=== PATIENT | male | born 1945 | race African-American/Black ===

== ENCOUNTER 2018-08-23 09:18 | Inpatient (IN) ==
[2018-08-23] MEDS ORDERED: LR 0 ML ONE (09:56)
[2018-08-23] MEDS ORDERED: LR 1,000 ML ONE (09:56)
[2018-08-23] MEDS ORDERED: DIPRIVAN 1% ONE ×2 (10:04→10:45)
[2018-08-23] MEDS ORDERED: PEPCID ONE (10:22)
[2018-08-23] MEDS ORDERED: REGLAN ONE (10:22)
[2018-08-23] MEDS ORDERED: XYLOCAINE-MPF 2% ONE (10:46)
[2018-08-23] MEDS ORDERED: FENTANYL ONE (10:47)
[2018-08-23 12:38] LABS: BASO# 0.01 X1000 (0.0-0.2); BASO% 0.2 % (0.0-0.8); EOS# 0.28 X1000 (0.0-0.7); EOS% 4.9 % (0.0-10.0); HEMATOCRIT 38.7 % (42.0-52.0); HEMOGLOBIN 12.9 g/dL (14.0-18.0); LYMPH# 1.42 X1000 (1.2-3.4); MCH 30.9 PG (27-31); MCHC 33.3 g/dL (33-37); MCV 92.8 FL (81-99); MONO# 0.81 X1000 (0.11-0.59); MONO% 14.2 % (1.7-9.3); NEUT# 3.17 X1000 (1.4-6.5); NEUT% 55.7 % (42.2-75.2); PLT 200 X1000 (130-400); RBC 4.17 XMIL (4.7-6.1); RDW 13.5 % (11.5-14.5); WBC 5.69 X1000 (4.8-10.8)
--- NOTE | 2018-08-23 12:50 | OPERATIVE NOTE ---
PROCEDURE DATE: 08/23/2018 REFERRING PHYSICIAN: Dr. Kamari Barrientos MD. INDICATION FOR PROCEDURE: 1. Nausea. 2. Epigastric pain. 3. History of malignant polyp. PROCEDURE PERFORMED: 1. Esophagogastroduodenoscopy. 2. Colonoscopy, canceled. CONSENT: Informed consent was obtained from the patient prior to the procedure. The risks, benefits, and alternatives were discussed. MEDICATION: The patient received monitored anesthesia care. PERFORMING PHYSICIAN: Carolina Palma MD. ASSISTANTS: 1. ST. Vlad 2. Ashlyn Carpenter RN 3. Janna Sun CRNA. 4. Angel Kolb MD (anesthesia). COMPLICATIONS: There were no complications. ESTIMATED BLOOD LOSS: None. SPECIMENS REMOVED: None. FINDINGS: On the 1st procedure, the upper endoscope was inserted to the duodenum. The hypopharynx appeared normal. The upper esophageal sphincter appeared normal. In the tubular esophagus, there were multiple white plaques consistent with Cely esophagitis. There was severe grade D erosive esophagitis the entire length of the esophagus. The GE junction appeared irregular with salmon-colored tongues suspicious for early Persaud esophagus. Biopsies were not taken due to the severity of the esophagitis. In the gastric lumen, there was over 600 mL of fluid and gastric debris evacuated from the stomach. Post evacuation, the fundus remained obscured. In the gastric body, there were multiple benign-appearing gastric polyps. The gastric mucosa showed multiple scattered erosions consistent with acute erosive gastritis. The pylorus was inflamed. In the duodenum there was duodenitis. There was also solid food and liquid debris pooling in the duodenum suggestive of a distal bowel obstruction. The lumen was then decompressed and the scope was removed without incident. The patient was repositioned in anticipation of performing a colonoscopy. However, prior to insertion of the scope, the patient passed solid brown stool per rectum. The procedure was canceled prior to scope insertion. IMPRESSIONS: 1. Cely esophagitis. 2. Severe erosive esophagitis, grade D. 3. Irregular gastroesophageal junction. 4. Severe gastric stasis suggestive of gastric outlet obstruction. 5. Multiple gastric polyps. 6. Acute erosive gastritis. 7. Inflamed pylorus. 8. Duodenitis with dilation and pooling of intestinal debris. 9. Inadequate bowel prep for colonoscopy. RECOMMENDATION: 1. We will obtain a CT scan of the abdomen and pelvis now. 2. He will need his EGD and colonoscopy rescheduled. 3. I will obtain a CMP and a CBC. 4. He will need Diflucan 200 mg today, followed by 100 mg daily for a total of 21 days of treatment. 5. He will need Prilosec 40 mg p.o. daily pending the results of his CT scan. 6. We will also begin Carafate 1 g 4 times per day for 12 weeks. 7. The patient's disposition will be based on the CT scan findings. cc: MD Kamari Salamanca MD
[2018-08-23 12:51] LABS: AGAP 10; ALB/GLOB RATIO 1.1; ALBUMIN 3.4 g/dL (3.5-5.0); ALKALINE PHOSPHATASE 71 U/L (32-122); BUN 8 mg/dL (8-22); CALCIUM 9.2 mg/dL (8.8-10.2); CHLORIDE 100 mmol/L (98-107); COSMO 275; CREATININE 0.8 mg/dL (0.7-1.2); ESTIMATED GFR > 60; GLUCOSE 86 mg/dL (70-104); GOT 16 U/L (10-34); GPT 12 U/L (10-44); POTASSIUM 3.9 mmol/L (3.5-5.1); SODIUM 139 mmol/L (136-145); TCO2 29 mmol/L (25-35); TOTAL BILIRUBIN 0.53 mg/dL (0.20-1.00); TOTAL PROTEIN 6.6 g/dL (6.3-8.3)
--- NOTE | 2018-08-23 14:36 | Diag Imaging Result Doc PS360 ---
EXAM: CT ABD/PELVIS W/PO AND IV CON 08/23/2018 HISTORY: gastric outlet obstruction, hx malignant polyp TECHNIQUE: This exam was performed using automated exposure control, adjustment of mA or kV according to patient size, and/or use of iterative reconstruction technique. COMMENT: There are compressive atelectatic changes in the right lower lobe which were also present to some extent at the time the previous study of 12/24/2017. There is a large paraesophageal hiatal hernia with the distal stomach and duodenum protruding into the chest. The duodenum returns into the abdomen on the right side. There is some bilateral nephrolithiasis. There are multiple renal cysts bilaterally with one containing calcifications and septations in the lower pole on the right measuring over 7.1 cm in diameter. This is similar in appearance to the previous study. Correlation with ultrasonography is recommended in view of the septations and calcifications. The aorta is not distended. The mesenteric and renal arteries are patent. The spleen is not enlarged containing multiple granulomata. The adrenal glands are not enlarged. The pancreas is within normal limits. There is diverticulosis in the descending colon. The small bowel is not distended. There has been partial resection of the right colon. Pelvis: There is extensive sigmoid diverticulosis without evidence of diverticulitis. There is no evidence of free fluid. There are severe degenerative changes in both hip joint spaces with multiple subchondral cysts on both sides of the joints. There are degenerative disc changes in the lumbar spine as well as a hemangioma present in L3. There is been no significant change in the appearance of the regional skeleton since the previous study. IMPRESSION: Paraesophageal hiatal hernia. Renal cysts particularly on the right as described. Advise further evaluation of the right-sided cyst with ultrasonography. Electronically signed by Alonzo Chang 08/23/2018 2:34 PM
[2018-08-23] MEDS ORDERED: SODIUM CHLORIDE 0.9% INJ SCH (16:00)
[2018-08-23] MEDS ORDERED: NS 1,000 ML ONE (16:09)
[2018-08-23] MEDS ORDERED: SODIUM CHLORIDE 0.9% 10 ML ONE (16:20)
[2018-08-23] MEDS: NS 1,000 ML IV SCH (16:20)
[2018-08-23] MEDS: PROTONIX IV SCH (16:21)
[2018-08-23] MEDS ORDERED: ZOFRAN IV PRN (16:45)
[2018-08-23 20:23] VITALS: BP 137/72
[2018-08-23] MEDS ORDERED: AMBIEN PO PRN (21:34)
[2018-08-23] MEDS ORDERED: BENTYL PO PRN (21:34)
[2018-08-24] MEDS: PROTONIX IV SCH (03:22)
[2018-08-24] MEDS: NS 1,000 ML IV SCH ×2 (03:27→05:51)
--- NOTE | 2018-08-24 03:44 | HISTORY AND PHYSICAL ---
PRIMARY CARE PHYSICIAN: Kamari Barrientos MD CHIEF COMPLAINT: Paraesophageal hernia. HISTORY OF PRESENT ILLNESS: The patient is a 72-year-old male with a complicated past medical history presents for evaluation of above-mentioned symptoms. Current history of present illness began several weeks ago. At that time, the patient states he developed increasing bloating and epigastric pain. The pain was exacerbated with eating certain foods and with eating a larger amount of food. The patient [*] her symptoms have progressed. The patient has, however, found reasonable control with smaller meals and symptomatic management of reflux disease. In addition to the abdominal discomfort, he also notes fluctuating irritable bowel syndrome. The patient was seen by Dr. Palma today. An EGD suggested possible gastric outlet obstruction. A CT scan of the abdomen and pelvis revealed a paraesophageal hiatal hernia and a renal cyst, particularly on the right, one with calcifications and septations. Because of the patient's new finding, I was contacted by Dr. Palma for admission for surgical consultation. The patient denies hematochezia, melena, or hematemesis. He has vomited on one occasion which he attributes to the prep for his colonoscopy. His nausea has been present only with overeating. PAST MEDICAL HISTORY: 1. Allergic rhinitis. 2. Benign prostatic hypertrophy. 3. History of Hemoccult-positive stools in 2013 with subsequent negative colonoscopy. 4. Right bundle branch block. 5. Colonic diverticulosis. 6. Reflux disease with a history of a hiatal hernia in 2007. 7. Family history of ischemic heart disease. 8. Nonalcoholic fatty liver disease. 9. Hiatal hernia status post surgical intervention in the . EGD, as described above, in 2007 suggested a recurrence. 10. Hypertension. 11. Irritable bowel syndrome. 12. History of a colonic mass status post resection in 2018. 13. Low HDL. 14. History of nephrolithiasis. 15. Obstructive sleep apnea. 16. Obesity. 17. Osteoarthritis. 18. Polymyalgia rheumatica. 19. Rheumatoid arthritis. 20. Left testicular hydrocele. TENTATIVE CURRENT MEDICATIONS: 1. Aleve [*]mg as needed. 2. Ambien 10 mg at bedtime as needed. 3. Dicyclomine 3 times daily as needed. 4. Fluticasone nasal spray, 2 sprays each nostril daily. 5. Folic acid 1 mg daily. 6. Losartan 50 mg daily. 7. Methotrexate 2.5 mg 6 tablets on Thursday. 8. Shaniko-3 at 1000 mg daily. 9. Pantoprazole 40 mg daily. 10. Probiotic daily. 11. Remicade every 8 weeks. 12. Tamsulosin 0.4 mg daily. ALLERGIES: He patient answered no known drug allergies. SOCIAL HISTORY: The patient smoked 1 pack per day for 11 years. He quit in 1978. He denies alcohol or illicit drug use. He is retired from [employer]. He enjoys tennis. He exercises routinely. FAMILY HISTORY: The patient's father passed at age 72 secondary to complications of an acute myocardial infarction. The patient's mother passed at age 67 secondary to complications of pneumonia associated with sepsis. REVIEW OF SYSTEMS: A 12-point review of systems was performed. Pertinent positives and negatives are noted in the history present illness. PHYSICAL EXAMINATION: VITAL SIGNS: Temperature 98.1 degrees, heart rate 66, respirations 18, blood pressure is 137/72. GENERAL: Well nourished, well developed, in no acute distress. HEENT: Normocephalic and atraumatic. Pupils equal, round and reactive to light. Extraocular muscles intact. Sclerae are anicteric. [place] conjunctivae. Oral and nasopharynx clear without exudate. NECK: Supple. No lymphadenopathy. No thyromegaly. No bruits auscultated. CARDIOVASCULAR: Regular rate and rhythm. No significant murmurs, rubs or gallops. PULMONARY: Clear to auscultation bilaterally. ABDOMEN: Soft, nontender and nondistended. Positive bowel sounds. EXTREMITIES: Moves all extremities well. No significant clubbing, cyanosis or edema. NEUROLOGIC: Cranial nerves II-XII grossly intact. Motor and sensory grossly intact. PSYCHOLOGIC: Examination is appropriate. LABORATORY DATA: White blood cell count 5.69, hemoglobin 12.9, hematocrit 38.7, platelet count 200,000. Sodium 139, potassium 3.9, chloride 100, bicarbonate 29, BUN 8, creatinine 0.8, glucose 86, calcium 9.2, total bilirubin 0.53, total protein 6.6, albumin 3.4, alkaline phosphatase 71, AST 16, ALT 12. CT scan of the abdomen and pelvis suggested paraesophageal hiatal hernia. Renal cyst particularly on the right. Advise further evaluation of the right-sided cyst with ultrasonography. ASSESSMENT AND PLAN: The patient is a 72-year-old male with past medical history as noted, presents for evaluation of paraesophageal home anemia. Per the patient, symptoms began several weeks ago. He has been forced to adjust his diet in order to maintain reasonable control of his nausea. Additionally, the patient was found to have a complicated renal cyst. The patient will be admitted to the hospital for full evaluation and management. 1. Admit to General Medicine. 2. Left paraesophageal hiatal hernia - the patient has been symptomatic for several weeks. As described above, he is status post a surgical repair of a hiatal hernia in the . At this point, this suggests a surgical failure. We will consult Dr. Mcgowan. At this point, the patient is experiencing nausea, but has had only one episode of vomiting. We will determine if an urgent or a more scheduled surgical intervention is warranted. 3. We will check an upper gastrointestinal series. 4. Complicated right-sided renal cysts - Dr. Palma has been consulted. Ultrasound has been ordered. We will determine if a surgical intervention is warranted. 5. Reflux disease - in the setting of a hiatal hernia, we will continue Protonix therapy. 6. Hypertension - we will continue losartan therapy. 7. Rheumatoid arthritis - we will remain aware. He is treated with methotrexate therapy. 8. Irritable bowel - we will continue as needed dicyclomine. 9. Fluid electrolytes and nutrition - we will monitor electrolytes, normal saline at 75 mL an hour. Nothing by mouth for now. Depending on surgery consultation, we will determine if starting a diet is appropriate. 10. Prophylaxis - the patient will be placed on sequential compression devices as possible surgical intervention will be warranted. cc: Kamari Barrientos MD
[2018-08-24 07:31] LABS: BASO# 0.02 X1000 (0.0-0.2); BASO% 0.4 % (0.0-0.8); EOS# 0.21 X1000 (0.0-0.7); EOS% 3.9 % (0.0-10.0); HEMATOCRIT 40.3 % (42.0-52.0); HEMOGLOBIN 13.2 g/dL (14.0-18.0); LYMPH# 1.19 X1000 (1.2-3.4); LYMPH% 22.2 % (20.5-51.1); MCH 30.4 PG (27-31); MCHC 32.8 g/dL (33-37); MCV 92.9 FL (81-99); MONO# 0.68 X1000 (0.11-0.59); MONO% 12.7 % (1.7-9.3); MPV 9.5 FL (7.4-10.4); NEUT# 3.26 X1000 (1.4-6.5); NEUT% 60.8 % (42.2-75.2); PLT 196 X1000 (130-400); RBC 4.34 XMIL (4.7-6.1); RDW 13.5 % (11.5-14.5); WBC 5.36 X1000 (4.8-10.8)
[2018-08-24 07:36] LABS: INR 1.04; PROTIME 14.4 Seconds (11.0-16.0)
[2018-08-24 07:37] LABS: PTT 35.8 Seconds (22.3-41.8)
[2018-08-24 07:50] LABS: AGAP 13; ALB/GLOB RATIO 1.1; ALBUMIN 3.4 g/dL (3.5-5.0); ALKALINE PHOSPHATASE 75 U/L (32-122); BUN 6 mg/dL (8-22); CALCIUM 8.8 mg/dL (8.8-10.2); CHLORIDE 104 mmol/L (98-107); COSMO 277; CREATININE 0.8 mg/dL (0.7-1.2); ESTIMATED GFR > 60; GLUCOSE 65 mg/dL (70-104); GOT 16 U/L (10-34); GPT 13 U/L (10-44); POTASSIUM 4.1 mmol/L (3.5-5.1); SODIUM 141 mmol/L (136-145); TCO2 24 mmol/L (25-35); TOTAL BILIRUBIN 0.87 mg/dL (0.20-1.00); TOTAL PROTEIN 6.4 g/dL (6.3-8.3)
--- NOTE | 2018-08-24 07:58 | Diag Imaging Result Doc PS360 ---
US ABDOMEN-COMPLETE - 08/24/2018 INDICATION: complex renal cyst COMPARISON: CT from 08/23/2018 FINDINGS: The liver is diffusely hyperechoic compatible with mild fatty change. No liver masses. The gallbladder is normal. The pancreas is obscured. The spleen is normal. The large right renal cysts are minimally septated but otherwise fairly benign appearing. These each measure about 10 cm. There is also a left renal echogenic cyst in the midpole measuring about 3.3 cm. Common bile duct measures 3 mm. Aorta, IVC, and main portal vein are patent. IMPRESSION: 1. Mild fatty liver. 2. Septated but fairly benign-appearing right renal cysts. 3. Echogenic left renal cyst. Follow-up in six months and one year. Electronically signed by Juan Carlos Castro 08/24/2018 7:55 AM
--- NOTE | 2018-08-24 08:07 | Diag Imaging Result Doc PS360 ---
EXAM: BA SWALLOW-ESOPHAGUS INDICATION: hiatal hernia and gastric outlet obstruction TECHNIQUE: Oral barium contrast was administered and the bolus was followed under fluoroscopy. Spot images were obtained. COMPARISON: None. FINDINGS: There is a very large paraesophageal hernia on the right. It is causing leftward bowing of the distal esophagus. There is significant delay of barium passage through the gastroesophageal junction and into the stomach. No discrete esophageal ulceration, filling defect, or stricture is identified, otherwise. No gastroesophageal reflux was witnessed during the study. IMPRESSION: Large paraesophageal hernia as described with significant delay of barium passage through the gastroesophageal junction and into the stomach. Electronically signed by Anand Eng 08/24/2018 8:04 AM
--- NOTE | 2018-08-24 08:48 | CONSULTATION ---
DATE OF CONSULTATION: 08/23/2018 REFERRING PHYSICIAN: Dr. Carolina Palma. REASON FOR CONSULTATION: Complex renal cysts. HISTORY OF PRESENT ILLNESS: A 72-year-old male who was admitted secondary to epigastric pain, bloating and diagnosis of periesophageal hernia. During evaluation, CT scan of abdomen and pelvis with oral and IV contrast was performed on 08/23/2017, which revealed bilateral renal cysts with a complex renal cyst containing septations and calcifications on the right lower pole. Of note, the patient had a CT scan 8 months prior and the cystic lesion had appeared to be stable. The patient has a urologic history of urolithiasis as well as a hydrocele. He does not recall being aware of the renal cysts. He denies significant right flank pain. He denies gross hematuria. He denies recurrent urinary tract infections. PAST MEDICAL HISTORY: 1. BPH. 2. Nephrolithiasis. 3. Hydrocele. 4. Allergic rhinitis. 5. GERD. 6. Hypertension. 7. Obstructive sleep apnea. PAST SURGICAL HISTORY: 1. Hiatal hernia repair. 2. Colon resection. 3. Left hydrocelectomy. 4. ORIF of right ankle and right elbow. 5. Knee arthroscopy. ALLERGIES: No known drug allergies. HOME MEDICATIONS: Tamsulosin, losartan, pantoprazole, Remicade, methotrexate, Ambien, dicyclomine. SOCIAL HISTORY: Former smoker, denies alcohol or illicit drug use. FAMILY HISTORY: No malignancies. No urolithiasis. REVIEW OF SYSTEMS: Reviewed and 12 systems negative except as in history of present illness. PHYSICAL EXAMINATION: Vitals: Temperature 98.1 degrees, pulse 88, blood pressure 153/77. General: No acute distress. Pleasant male. HEENT: Normocephalic, atraumatic. Cardiovascular: Regular rate and rhythm. Pulmonary: Bilateral breath sounds. Abdomen: Protuberant, nontender to palpation. No masses palpable. No evidence of hepatosplenomegaly. Well healed infraumbilical midline abdominal scar. No evidence of hernias. Back: No CVA tenderness. : Bladder is nontender to palpation, meatus is patent, left hemiscrotal enlargement, right testis is palpable, appropriate size, no masses noted, no tenderness, right vas deferens palpable, right epididymis is nontender. The left testis is difficult to palpate due to hydrocele, left epididymis palpable. Perineum with structural integrity intact. Rectal: Digital rectal examination is deferred at this examination. Lymphatic: No groin lymphadenopathy. Dermatologic: No obvious skin rashes. Neurologic: Alert and oriented x3. Psychiatric: Appropriate mood and affect. PERTINENT LABORATORY DATA: White cell count 6000, hematocrit is 39. Creatinine is 0.8. PERTINENT IMAGES: CT abdomen and pelvis with oral and IV contrast per history of present illness. ASSESSMENT AND PLAN: A 72-year-old male with history of urolithiasis who has bilateral renal cysts with a complex right lower pole renal cyst. I personally reviewed CT images. I have discussed with the patient and his who was present at bedside, that complex cysts have a small chance of becoming malignant. He definitely has calcification and septations within the cyst, which would make it a [place] type 3 lesion. I have discussed with the patient that his options could be surveillance of the cystic lesion with serial ultrasounds versus cyst excision. Obviously biopsy of the cyst would not yield good result and it could not be addressed with radiofrequency ablation or cryotherapy. I have discussed with the patient that I agree with the radiologist regarding checking the ultrasound, although CT scan is by definition a better imaging modality to assess and grade complexity of the renal cyst. The patient and his family. At this time feel that they would not want to observe this cyst with serial imaging and leaning toward intervention. I have discussed with them that this could be arranged in the near future on an outpatient basis pending his GI workup and Dr. Mcgowan's recommendations for the hiatal hernia. PLAN: 1. I agree with obtaining renal ultrasound. 2. We will follow up with the patient and revisit the plan after noting Dr. Mcgowan's recommendation regarding the hiatal hernia. Thank you for the consultation. cc: MD Kamari Proctor MD
[2018-08-24] MEDS ORDERED: COZAAR PO SCH (09:00)
[2018-08-24] MEDS ORDERED: FOLIC ACID PO SCH (09:00)
[2018-08-24] MEDS ORDERED: FLOMAX PO SCH (09:00)
[2018-08-24] MEDS ORDERED: NON-FORMULARY MED (Omeprazole [Omeprazole] 40 MG) PO SCH (09:00)
--- NOTE | 2018-08-24 09:28 | PROGRESS NOTE ---
DATE: 08/24/2018 SUBJECTIVE: Mr. Ruff reports an uneventful night. He underwent renal ultrasound this morning, as well as well as barium swallow testing. OBJECTIVE: Vital Signs: Temperature 98.1, pulse 66, BP 137/72. General: No acute distress. Abdomen nontender, nondistended. PERTINENT LABORATORY DATA: White cell count is 5000, hematocrit is 40, and creatinine is 0.8. PERTINENT IMAGES: Ultrasound of the abdomen on 08/24/2018 confirmed right renal cyst with septation. The radiologist actually commented on echogenic left renal cyst in the inner pole area, which on the CT scan looks fairly benign. ASSESSMENT AND PLAN: A 72-year-old male with hiatal hernia and GI symptoms who was incidentally found to have right complex renal cyst that is fairly sizable. I have discussed with the patient ultrasound findings. I have discussed with him yet again that the complexity of the cyst is graded and assessed better with a CT scan rather than an ultrasound. We have revisited with him treatment options which would be surveillance with serial renal ultrasounds of the cyst versus a robotic-assisted laparoscopic partial nephrectomy (open excision of the cystic lesion). He feels fairly strongly about intervening once his GI issues are addressed. I have educated the patient that he can contact my clinic after being discharged, and we can set him up on outpatient basis for the above-stated procedure. PLAN: 1. The patient will contact our office to set up his procedure. 2. No urologic intervention needed at this time. 3. Please call if questions. cc: MD Kamari Proctor MD
--- NOTE | 2018-08-24 11:08 | GENERAL SURGERY PROGRESS NOTE ---
DATE: 08/24/2018 SUBJECTIVE: The patient denies any abdominal pain, nausea, vomiting, chest pain or shortness of breath. OBJECTIVE: Vital signs: He is afebrile. Vital signs are stable. General: He is awake, alert, no acute distress. Gastrointestinal: Soft, nontender, nondistended. IMAGING: Upper GI study shows a large paraesophageal hernia with delayed passage of barium through the gastroesophageal junction into the stomach. There is no esophageal ulceration, filling defects or stricture, and no reflux was witnessed. Abdominal ultrasound shows a mildly fatty liver, a septated but fairly benign-appearing right renal cyst and echogenic left renal cyst. ASSESSMENT AND PLAN: A 72-year-old male with paraesophageal hernia and renal cysts. He is stable and symptomatically having minimal symptoms at this time despite the upper GI findings. We will let him go home. He will come back and see me within the week to make plans for elective paraesophageal hernia repair. I believe Dr. Palma is going to follow these renal cysts and he may intervene in the future after his hernia repair has been accomplished. cc: MD Kamari Ansari MD
--- NOTE | 2018-08-24 15:09 | DISCHARGE SUMMARY ---
ADMISSION DATE: 08/23/2018 DISCHARGE DATE: 08/24/2018 ADMISSION DIAGNOSIS: Gastric outlet obstruction secondary to paraesophageal hernia. DISCHARGE DIAGNOSES: 1. Paraesophageal hiatal hernia with partial gastric outlet obstruction. 2. Complicated right sided renal cyst. 3. Reflux disease, present on arrival. 4. Hypertension, present on arrival. 5. Rheumatoid arthritis, present on arrival. 6. Irritable bowel syndrome, present on arrival. CONSULTATIONS: 1. Dr. Mcgowan with General Surgery was consulted for further evaluation and management of a paraesophageal hiatal hernia with partial gastric outlet obstruction. 2. Dr. Palma with Urology was consulted for further evaluation and management of complicated renal cyst PROCEDURES: 1. CT scan of the abdomen and pelvis was performed on 08/23/2018, which revealed paraesophageal hiatal hernia. Renal cyst particularly on the right. Advise further evaluation of right- sided cyst with ultrasonography 2. EGD was performed on 08/23/2018, which revealed Cely esophagitis. Severe erosive gastritis, grade D. Irregular gastroesophageal junction. Severe gastric stasis suggestive of gastric outlet obstruction. Multiple gastric polyps. Acute erosive gastritis. Inflamed pylorus. Duodenitis with dilation and pooling of intestinal debris. 3. Abdominal ultrasound was performed on 08/24/2018, which revealed mild fatty liver. Septated but fairly benign-appearing right renal cyst. Echogenic left renal cyst. Follow up in 6 months and 1 year recommended. 4. Barium swallow was performed on 08/24/2018 which revealed large paraesophageal hernia with significant delay of barium passage through the gastroesophageal junction and into the stomach. HISTORY AND PHYSICAL EXAMINATION: See admit note. PHYSICAL EXAMINATION PRIOR TO DISCHARGE: Vital Signs: Temperature 98.1 degrees, heart rate 66, respirations 18, blood pressure is 137/72. General: Well nourished, well developed, no acute distress. Cardiovascular: Regular rate and rhythm. No significant murmurs, rubs, or gallops. Pulmonary: Clear to auscultation bilaterally. Abdomen: Soft, nontender, nondistended. Positive bowel sounds. Extremities: Moves all extremities well. No significant clubbing, cyanosis, or edema. Dermatologic: Evaluation reveals no evidence of rash. LABORATORY DATA PRIOR TO DISCHARGE: White blood cell count 5.36, hemoglobin 13.2, hematocrit 40.3, platelet count 196,000. PT 14.4, INR is 1.04. PTT is 35.8. Sodium 141, potassium 4.1, chloride 104, bicarb 24, BUN 6, creatinine 0.8, glucose 65, calcium 8.8, total bilirubin 0.87. Total protein 6.4, albumin 3.4, alkaline phosphatase 75. AST 16, ALT 13. HOSPITAL COURSE: Patient was admitted as per history and physical examination. Hospital course per condition is as follows: 1. Paraesophageal hiatal hernia with partial gastric outlet obstruction-as described in history of present illness, patient was diagnosed during the EGD intervention. I was contacted by Dr. Palma for admission. Dr. Mcgowan was immediately consulted. Further evaluation was recommended. A barium swallow was performed which revealed above-mentioned results. At this point, as patient was tolerating p.o., discharge home with outpatient arrangement of surgical intervention was deemed most appropriate. The patient will be discharged home on omeprazole daily. Aspiration precautions and a soft diet has been recommended. Followup will be arranged with Dr. Mcgowan. 2. Complicated right-sided renal cyst per CT scan, but more a concerning cyst on the left side per ultrasound-appreciate Dr. Palma's consultation. Patient will have follow-up arranged as an outpatient. Further intervention will be determined depending on this consultation. 3. Reflux disease-the patient has had increasing symptoms in the setting of his paraesophageal hiatal hernia. For now, we will continue omeprazole therapy. As an outpatient. 4. Hypertension-patient will be maintained on losartan therapy as an outpatient. 5. Rheumatoid arthritis-he is currently being treated with methotrexate and Remicade. We will defer current management. 6. Irritable bowel syndrome-we will continue patient on as-needed dicyclomine therapy. 7. Cely esophagitis-the patient will be started on Diflucan 100 mg daily for 21 days and Carafate 1 g 4 times daily for 12 weeks. Prescriptions will be provided. DISCHARGE CONDITION: Good. DISPOSITION: Discharge to home. MEDICATIONS: 1. Dicyclomine 20 mg 3 times daily as needed. 2. Folic acid 1 mg daily. 3. Losartan 50 mg daily. 4. Tamsulosin 0.4 mg daily. 5. Ambien 10 mg daily at bedtime as needed. 6. Remicade as previously arranged. 7. Fluticasone nasal spray as needed. 8. Prilosec 40 mg daily. 9. Diflucan 100 mg daily for 21 days. 10. Carafate 1 g 4 times daily for 12 weeks. FOLLOW-UP INSTRUCTIONS: The patient is to follow up with Dr. Mcgowan as arranged. Patient is follow up with Dr. Palma as arranged. Patient is to follow with me in approximately 1 to 2 weeks. cc: Kamari Barrientos MD
== END 2018-08-24 14:15 | disposition home or self-care (01) | DRG 392 ==
LOC: ENDO 09:18 → SURHOLD 09:18 → OBSVTOIN 15:48 → 3N 16:10
PROVIDERS: ADMIT Internal Medicine; ATTEND Internal Medicine
CPT/HCPCS: 74177; 74220; 76700; 80053; 85025; 85610; 85730; A9270; C9113; J3010; J7030; J7120; Q9967; S0164